=== PATIENT | male | born 1995 | race Caucasian/White ===

== ENCOUNTER 2025-07-15 16:01 | Emergency (ER) | payer BC ==
[2025-07-15 16:25] LABS: #Basophils 0.04 10x3/uL (0.0-0.2); #Eosinophils Less than 0.03 10x3/uL (0.0-0.7); #Monocytes 0.42 10x3/uL (0.11-0.59); #Neutrophils 7.91 10x3/uL (1.40-6.50); %Basophils 0.4 % (0.0-1.0); %Eosinophils 0.2 % (0.0-10.0); %Lymphocytes 16.0 % (21.0-51.0); %Monocytes 4.2 % (0.0-10.0); %Neutrophils 78.7 % (42.0-75.0); Hematocrit 47.4 % (42.0-52.0); Hemoglobin 16.1 g/dL (14.0-18.0); Mean Corpuscular Hemoglobin 27.9 pg (27.0-31.0); Mean Corpuscular Volume 82.1 fL (78.0-98.0); Platelet Count 260 10x3/uL (130-400); Red Blood Cell (RBC) Count 5.77 mill/uL (4.70-6.10); White Blood Cell (WBC) Count 10.05 10x3/uL (4.8-10.8)
[2025-07-15] MEDS ORDERED: diphenhydrAMINE 50 MG/ML VIAL ONE (16:30)
[2025-07-15] MEDS ORDERED: Acetaminophen 500 MG TAB ONE (16:30)
[2025-07-15] MEDS ORDERED: Metoclopramide HCl 10 MG (2 mL) VIAL ONE (16:31)
[2025-07-15 17:06] LABS: ALT (SGPT) 28 U/L (Less than 45); AST (SGOT) 23 U/L (11-34); Albumin 4.1 g/dL (3.1-4.5); Alkaline Phosphatase 97 U/L (40-110); Anion Gap 17 mmol/L (10-20); BUN (Urea Nitrogen) 10 mg/dL (8.9-20.6); Bilirubin, Total 0.6 mg/dL (0.3-1.2); Calc. Creatinine Clearance 0 mL/min (70-130); Calcium 9.3 mg/dL (7.8-10.44); Carbon Dioxide 25 mmol/L (22-29); Chloride 104 mmol/L (98-107); Globulin 3.3 g/dL (2.4-3.5); Glucose 126 mg/dL (70-105); Potassium 3.6 mmol/L (3.5-5.1); Sodium 142 mmol/L (136-145)
== END 2025-07-15 17:52 | disposition home or self-care (01) ==
LOC: ERS 16:01
DX: R51.9 Headache, unspecified (principal); I10 Essential (primary) hypertension; Z79.899 Other long term (current) drug therapy
CPT/HCPCS: 70450; 80053; 85025; 96365; 96375; J1200; J2765